=== PATIENT | male | born 1945 | race Caucasian/White ===

== ENCOUNTER → 2019-03-17 | Day surgery (SDC) | payer MEDICARE ==
[~2019-03-17] MED LIST: DICL75TA PO; ESOM40CA PO; FERR236T2 PO; FINA5TAB4 PO; HYDROmorphone 2 MG/ML VIAL IV PRN; IV RINGERS,LACTATED 1000ML 1,000 ML IV SCH; LIDOCAINE 1% PF 2 ML VIAL. ID PRN; MORPHINE SULFATE 2 MG/ML VIAL. IV PRN; ONDANSETRON PF 4 MG/2 ML VIAL. IV PRN; PROCHLORPERAZINE 10 MG/2 ML VIAL. IV PRN; PROPOFOL 40 ML IV ONE; fentaNYL PF VIAL 100 MCG/2 ML VIAL IV PRN
[2019-03-17 17:35] VITALS: BP 112/73
--- NOTE | 2019-03-17 23:35 | CONS ---
DATE OF CONSULTATION: 03/17/2019 REASON FOR CONSULTATION: Iron deficiency anemia. REFERRING PHYSICIAN: Lebron Mcgregor MD HISTORY OF PRESENT ILLNESS: This is a 73-year-old male, whose past medical history is significant for osteoarthrosis, as well as BPH, status post prostate surgery, gastroesophageal reflux disease, who is seen with iron deficiency anemia, hemoglobin is in the 11 range. Denies any melena, hematochezia, dysphagia, odynophagia, diarrhea or constipation. Weight has dropped approximately 10 pounds, has since stabilized. No family history of colon polyps, colon cancer, gastric cancer is encountered. He is otherwise without additional complaints. PAST MEDICAL HISTORY: GERD, iron deficiency anemia and osteoarthrosis. ALLERGIES: PENICILLIN. MEDICATIONS: Include diclofenac, Nexium, ferrous gluconate and finasteride. PAST SURGICAL HISTORY: Status post prostate surgery. SOCIAL HISTORY: Employed as a director search marketing strategies, does not drink or smoke at this time. FAMILY HISTORY: Noncontributory. REVIEW OF SYSTEMS: Per records. PHYSICAL EXAMINATION: GENERAL: Reveals a well-nourished, well-developed male who is alert, cooperative, in no acute distress. VITAL SIGNS: Temperature is 97.6, pulse 91 and respirations 20. HEENT: Reveals normocephalic, atraumatic head. Pupils and extraocular muscles are not tested. Sclerae anicteric. NECK: Supple. LUNGS: Clear. CARDIOVASCULAR: Reveals an S1, S2 without S3, S4 or appreciable murmur. ABDOMEN: Reveals a scaphoid abdomen without appreciable hepatosplenomegaly. No palpable aneurysm. EXTREMITIES: Reveals no cyanosis, clubbing or edema. IMPRESSION AND PLAN: Iron deficiency anemia, etiology is to be determined. Differential includes gastric or colon cancer, Fair's, AVMs, diabetes, celiac disease, colonic polyps. Therefore, I recommend upper endoscopy and colonoscopy. If this is unrevealing, then further blood counts will be pursued. A small bowel series and/or capsule may be needed if the anemia remains persistent. MALDONADO BROOKS MD DR: GABY/mitchel JOB#: [id number] / [id number] [facility] LEBRON MCGREGOR MD
--- NOTE | 2019-03-20 12:06 | PATHOLOGY ---
[facility] Accession Number: [id number] . 01 Material submitted: . PART A: stomach - GASTRIC ANTRUM BX PART B: esophagus - DISTAL ESOPHAGUS BX. Modifiers: distal . 01 Clinical history: . Pre-OP DX: Anemia Post-OP DX: Fair's, stomach ulcer . 02 Diagnosis: A. Gastric biopsies, antrum: - Chronic gastritis, moderate, with ulceration and acute inflammation. . B. 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 . (JPM:cali; 03/20/2019) [facility] 03/20/2019 0923 Local . 02 Comment: Sections of the gastric biopsy reveal segments of gastric antral mucosa showing moderate chronic inflammation with areas of ulceration and acute inflammation. A properly controlled immunoperoxidase stain for Helicobacter is negative for Helicobacter organisms. There is no evidence of malignancy. . Sections of the distal esophageal biopsy reveal segments of hyperplastic squamous esophageal mucosa with contiguous columnar-lined mucosa showing mild chronic inflammation and intestinal metaplasia with goblet cells consistent with Fair's change. There is no dysplasia or evidence of malignancy. . (JPM:chief orthoptist; 03/20/2019) . 02 Electronically signed: . Adonay Mckeon MD, Pathologist NPI- [id number] . 01 Gross description: . A. Received in formalin labeled "Randy Ivey, gastric antrum BX," are 5 segments of veliz soft tissue measuring 0.9 x 0.7 x 0.2 cm in aggregate dimensions and ranging from 0.3 to 0.5 cm in maximum dimension. The specimen is submitted entirely in cassette A1. . B. Received in formalin labeled "Bam Ivey, distal esophagus BX," are 2 segments of veliz soft tissue measuring 1.1 x 0.3 x 0.2 cm in aggregate dimensions and ranging from 0.5 to 0.6 cm in maximum dimension. The specimen is submitted entirely in cassette B1. (TSD; 03/18/2019) TOB/TOB 03/18/2019 1844 Local . 02 Pathologist provided ICD-10: K29.50, K25.9, K29.00, K22.70 . 02 CPT . 081566, 524212 Specimen Comment: A courtesy copy of this report has been sent to [phone], [phone] Specimen Comment: [id number] Specimen Comment: Report sent to / DR SHAH Specimen Comment: Report sent to Performed at: 01 [facility] [address] [id number] MD Geronimo Ann MD Phone: [phone] Performed at: 02 [facility] [address] [place], [place] [id number] MD Adonay Mckeon MD Phone: [phone]
== END ==
LOC: ENDOS 16:17
PROVIDERS: ATTEND Internal Medicine Gastroenterology
DX: D50.9 Iron deficiency anemia, unspecified (principal); K57.30 Diverticulosis of large intestine without perforation or abscess without bleeding; K29.50 Unspecified chronic gastritis without bleeding; K22.70 Barrett's esophagus without dysplasia; K21.9 Gastro-esophageal reflux disease without esophagitis; K25.9 Gastric ulcer, unspecified as acute or chronic, without hemorrhage or perforation; K64.0 First degree hemorrhoids; N40.0 Benign prostatic hyperplasia without lower urinary tract symptoms; Z88.0 Allergy status to penicillin; Z98.890 Other specified postprocedural states
CPT/HCPCS: 43239; 45378; 88305; 88342; J2704

== ENCOUNTER → 2019-04-06 | Outpatient (CLI) | payer MEDICARE ==
[2019-03-17 17:35] VITALS: BP 112/73
[~2019-04-06] MED LIST changes: -HYDROmorphone 2 MG/ML VIAL IV PRN; -IV RINGERS,LACTATED 1000ML 1,000 ML IV SCH; -LIDOCAINE 1% PF 2 ML VIAL. ID PRN; -MORPHINE SULFATE 2 MG/ML VIAL. IV PRN; -ONDANSETRON PF 4 MG/2 ML VIAL. IV PRN; -PROCHLORPERAZINE 10 MG/2 ML VIAL. IV PRN; -PROPOFOL 40 ML IV ONE; +TRAZ-86 PO; -fentaNYL PF VIAL 100 MCG/2 ML VIAL IV PRN
[2019-04-06 09:38] LABS: BASO % 1 % (0-3); EOS # 0.3 x10^3/uL (0.0-0.7); EOS % 5 % (0-3); HEMATOCRIT 39.5 % (39.0-53.0); HEMOGLOBIN 12.8 g/dL (13.0-17.5); LYMPH # 1.6 x10^3/uL (1.0-4.8); LYMPH % 30 % (24-48); MEAN CORPUSCULAR HEMOGLOBIN 27 pg (25-35); MEAN CORPUSCULAR HGB CONC 32 g/dL (31-37); MEAN CORPUSCULAR VOLUME 85 fL (79-100); MONO # 0.4 x10^3/uL (0.0-1.1); MONO % 8 % (0-9); NEUT # 3.1 x10^3/uL (1.8-7.7); NEUT % 57 % (31-73); PLATELET COUNT 205 x10^3/uL (140-400); RED BLOOD COUNT 4.68 x10^6/uL (4.30-5.70); RED CELL DISTRIBUTION WIDTH 20.6 % (11.5-14.5); WHITE BLOOD COUNT 5.5 x10^3/uL (4.0-11.0)
[2019-04-06 09:45] LABS: ALBUMIN 3.4 g/dL (3.4-5.0); CALCIUM 8.5 mg/dL (8.5-10.1); CREATININE 0.8 mg/dL (0.7-1.3); POTASSIUM 3.7 mmol/L (3.5-5.1)
[2019-04-06 09:52] LABS: PROTHROMBIN TIME PATIENT 12.9 SEC (11.7-14.0)
[2019-04-06 10:39] LABS: ANISOCYTOSIS SLIGHT; PLT ESTIMATE ADEQUATE (ADEQUATE)
--- NOTE | 2019-04-06 13:40 | EKG ---
[facility] [address] [place] [address] Test Date: 2019-04-06 Test Time: 13:12:44 Pat Name: MAX JULIEN Department: Room: Gender: M Financial Analyst Accountant: : 1945 Requested By: ESME BOSWELL Order Number: [id number] Reading MD: Imtiaz Cisse Measurements Intervals [place] Rate: 65 P: 62 PA: 154 QRS: 69 QRSD: 102 T: 26 QT: 428 QTc: 451 Interpretive Statements SINUS RHYTHM NORMAL ECG RI6.02 No previous ECG available for comparison Electronically Signed On 04-09-2019 11:29:13 SLUDGE CONTROL OPERATOR by Imtiaz Cisse
--- NOTE | 2019-04-06 14:44 | RAD ---
EXAM: Chest, 2 views. HISTORY: Sleep apnea. COMPARISON: None. FINDINGS: 2 views of the chest are obtained. There is no infiltrate, pleural effusion or pneumothorax. The heart is normal in size. There is hyperinflation due to inspiratory effort or emphysema. IMPRESSION: No acute pulmonary finding. Electronically signed by: Mary Chen MD (04/06/2019 2:41 PM) [place] [id number]
[2019-04-07 00:07] LABS: HEMOGLOBIN A1C 5.1 % (4.8-5.6)
== END | disposition home or self-care (01) ==
LOC: SURGPAT 13:14
PROVIDERS: ATTEND Orthopaedic Surgery
DX: Z01.818 Encounter for other preprocedural examination (principal); M17.11 Unilateral primary osteoarthritis, right knee; G47.30 Sleep apnea, unspecified; Z88.0 Allergy status to penicillin; Z86.2 Personal history of diseases of the blood and blood-forming organs and certain disorders involving the immune mechanism; E55.9 Vitamin D deficiency, unspecified
CPT/HCPCS: 36415; 71046; 80048; 82040; 82306; 83036; 85025; 85610; 85651; 85730; 87641; 93005

== ENCOUNTER 2019-04-28 08:10 | Inpatient (IN) | payer MEDICARE ==
[2019-04-28] VITALS (7 sets, daily range): BP systolic 116–136; BP diastolic 62–92
[~2019-04-28] VITALS: Ht 177.8 cm; Wt 75.3 kg
[~2019-04-28 08:10] MED LIST changes: +ACETAMINOPHEN 500 MG TABLET PO PRN; +CELECOXIB 100 MG CAPSULE. PO SCH; +CLINDAMYCIN 900MG PREMIX 50 ML IV PRN; +MORPHINE SULFATE 5 MG, KETOROLAC 30MG VIAL 30 MG, ROPIVacaine 0.5% PF 60 ML, EPINEPHrin... INT ART ONE; +TOBRAMYCIN POWDER 1.2 GM VIAL. ONE; +TRANEXAMIC ACID 1,000 MG in IV NS 50ML -- 1ST BAG INJ ONE; +TRANEXAMIC ACID 1,000 MG in IV NS 50ML -- 2ND BAG INJ ONE; +TRAZ-123 PO; -TRAZ-86 PO; +VANCOMYCIN 1 GM VIAL. ONE
[2019-04-28] MEDS ORDERED: fentaNYL PF VIAL 100 MCG/2 ML VIAL ONE ×2 (09:40→10:50)
[2019-04-28] MEDS ORDERED: ROCURONIUM 50 MG/5 ML VIAL. ONE (09:40)
[2019-04-28] MEDS ORDERED: DEXAMETHASONE SOD PHOS 20 MG/5 ML VIAL. ONE (09:41)
[2019-04-28] MEDS ORDERED: PROPOFOL 20 ML IV ONE ×2 (09:41→11:19)
[2019-04-28] MEDS ORDERED: LIDOCAINE 2% PF 5 ML VIAL. ONE (09:41)
[2019-04-28] MEDS ORDERED: ONDANSETRON PF 4 MG/2 ML VIAL. ONE (09:41)
[2019-04-28] MEDS: IV RINGERS,LACTATED 1000ML 1,000 ML IV SCH ×2 (09:55→22:35)
--- NOTE | 2019-04-28 10:15 | PDOC1 ---
History and Physical Date of Admission Date of Admission DATE: 04/28/19 TIME: 10:07 Identification/Chief Complaint Chief Complaint Right knee osteoarthritis pain Source Source: Chart review, Patient History of Present Illness History of Present Illness Mr. Ivey is a 73-year-old man with right knee osteoarthritis pain, and here for elective right total knee arthroplasty. He is friends with Veronica Rosa and a retired sr. payroll processor for [employer]. Currently, he reports knee pain that keeps him up at night when walking or with uneven surfaces or stairs. He was required to walk 5- 6 miles/day for work and he retired as he was unable to do this. Reports history of intermittent physical therapy over the years for knee symptoms. He states that he has tried Excedrin as this is the only medication that helps. However, this exacerbates his GERD. Never smoker. Denies metal or nickel allergy. Reports staph infection in right knee joint years ago () and he was treated with antibiotics for this and it resolved. Earlier this year he had a series of viscosupplementation injections for treatment of his arthritis and felt like he got no benefit. The knees bother him continuously but are especially keeping him awake at night and making it impossible to exercise during the day. Past Medical History Past Medical History Esophageal reflux. Insomnia. Osteoarthritis. BPH. GI: GERD Musculoskeletal: Osteoarthritis Renal/: Benign prostatic enlarg. Past Surgical History Past Surgical History prostate surgery carpal tunnel release-Lt 2016 hand surgery-Rt 2017 inguinal hernia repair-Lt 11/05/17 Past Surgical History: Hernia Repair Family History Family History Mother: Father: Unknown. Social History Smoke: No ALCOHOL: occassional Current Medications Current Medications Current Medications Morphine Sulfate 5 mg/Ketorolac Tromethamine 30 mg/Ropivacaine 60 ml/Epinephrine HCl 0.5 mg/Sodium Chloride 100 ml @ 100 mls/hr 1X ONCE INT ART ; Start 04/28/19 at 06:00; Stop 04/28/19 at 06:59; Status DC Acetaminophen (Tylenol) 1,000 mg 1X PREOP PRN PO PRIOR TO PROCEDURE Last adm inistered on 04/28/19at 09:12; Start 04/28/19 at 06:00; Stop 04/28/19 at 18:00 Clindamycin Phosphate 50 ml @ 100 mls/hr 1X PREOP PRN IV PRIOR TO PROCEDURE; Start 04/28/19 at 06:00; Stop 04/28/19 at 18:00 Tranexamic Acid 1000 mg/Sodium Chloride 60 ml @ 60 mls/hr 1X PERIOP ONCE INJ ; Start 04/28/19 at 06:00; Stop 04/28/19 at 06:59; Status DC Tranexamic Acid 1000 mg/Sodium Chloride 60 ml @ 60 mls/hr 1X PERIOP ONCE INJ ; Start 04/28/19 at 08:00; Stop 04/28/19 at 08:59; Status DC Celecoxib (CeleBREX) 200 mg PREOP 1X PO ; Start 04/28/19 at 06:00 Vancomycin HCl (Vancomycin) 1 gm STK-MED ONCE .ROUTE ; Start 04/28/19 at 07:34; Stop 04/28/19 at 07:35; Status DC Tobramycin Sulfate (Tobramycin Powder) 1.2 gm STK-MED ONCE .ROUTE ; Start 04/28/19 at 07:34; Stop 04/28/19 at 07:35; Status DC Vancomycin HCl (Vancomycin) 1 gm STK-MED ONCE .ROUTE ; Start 04/28/19 at 07:35; Stop 04/28/19 at 07:35; Status DC Ringer's Solution 1,000 ml @ 75 mls/hr [id number] IV Last administered on 04/28/19at 09:55; Start 04/28/19 at 09:15 Fentanyl Citrate (Fentanyl 2ml Vial) 100 mcg STK-MED ONCE .ROUTE ; Start 04/28/19 at 09:40; Stop 04/28/19 at 09:40; Status DC Rocuronium Pearson (Zemuron) 50 mg STK-MED ONCE .ROUTE ; Start 04/28/19 at 09:40; Stop 04/28/19 at 09:41; Status DC Propofol 20 ml @ As Directed STK-MED ONCE IV ; Start 04/28/19 at 09:41; Stop 04/28/19 at 09:41; Status DC Lidocaine HCl (Lidocaine Pf 2% Vial) 5 ml STK-MED ONCE .ROUTE ; Start 04/28/19 at 09:41; Stop 04/28/19 at 09:41; Status DC Dexamethasone Sodium Phosphate (Decadron) 20 mg STK-MED ONCE .ROUTE ; Start 04/28/19 at 09:41; Stop 04/28/19 at 09:41; Status DC Ondansetron HCl (Zofran) 4 mg STK-MED ONCE .ROUTE ; Start 04/28/19 at 09:41; Stop 04/28/19 at 09:41; Status DC Active Scripts Active Reported Trazodone Hcl 100 Mg Tablet 100 Mg PO PRN QHS PRN Finasteride 5 Mg Tablet 5 Mg PO DAILY Diclofenac Sodium 75 Mg Tablet.dr 75 Mg PO DAILY Iron (Ferrous Gluconate) 236 Mg Tablet 65 Mg PO DAILY Nexium Capsule (Esomeprazole Magnesium) 40 Mg Capsule.dr 40 Mg PO DAILYAC Allergies Allergies: Coded Allergies: Penicillins (Verified Allergy, Intermediate, 04/28/19) unknown ROS Review of System OPHTHALMOLOGY: Blurred vision none. Double vision denies. Change in vision none. ENT: Hearing loss none. Change in voice denies. Rhinorrhea none. CARDIOLOGY: Palpitations none. Shortness of breath denies. Chest pain denies. CONSTITUTIONAL: Fever denies. Chills denies. Weight gain denies. Weakness none. weight loss denies. Fatigue none. GASTROENTEROLOGY: Diarrhea denies. Vomiting none. Dysphagia none. UROLOGY: Voiding normally yes. Hematuria none. MUSCULOSKELETAL: Chronic back or neck pain denies. Swelling of the feet, hands, ankles and /or legs denies. Joint pain reports. Tingling/numbness no. DERMATOLOGY: Rash denies. Lumps none. NEUROLOGY: Dizziness/lightheadedness denies. Double vision, temporary blindness denies. Tingling/numbness none. PSYCHOLOGY: Change in mood or personality denies. Memory loss none. ENDOCRINOLOGY: Obesity denies. Fatigue none. Weight loss none. HEMATOLOGY/LYMPH: Hepatitis denies. Enlarged lymph nodes denies. Physical Exam General: Alert, Cooperative HEENT: Atraumatic Lungs: Normal air movement Heart: RRR Abdomen: Soft Extremities: Other (The RIGHT knee shows a minimal limp. There is marked varus alignment. No masses. No detectable effusion. Tenderness on the joint lines. Range of motion is 10-115 degrees. There is crepitus with range of motion, and pain at the extremes of motion. The knee is stable to varus and valgus stress without subluxation or laxity. Muscle strength is slightly weak for the quadriceps 4+/5 which may be due to pain or avoidance, and does not seem neuroge dai, and the muscle tone and bulk is slightly decreased. The hamstring strength is 5/5. The skin is normal with no scars, rashes, lesions or ulcers. Light touch sensation is intact. No edema and no varicosities. Dorsalis pedis pulse is intact and capillary refill is normal.) Skin: No breakdown, No significant lesion Neuro: Normal speech, Sensation intact Psych/Mental Status: Mental status NL, Mood NL Vitals Vitals Vital Signs Date Time Temp Pulse Resp B/P (MAP) Pulse Ox O2 Delivery O2 Flow Rate FiO2 04/28/19 08:56 97.3 71 18 152/82 97 Room Air 97.3 Labs Labs ESR = 1 Hemoglobin 12.8 Glucose 110 Hemoglobin A1c 5.1 INR 1.0 MRSA negative Creatinine 0.8 Images Images Report reviewed, images independently reviewed the x-rays 07/22/18. The right knee has varus malalignment, chme-wk-ecie contact, definite bone deformity of the medial tibia and significant sclerosis. There is tibiofemoral subluxation of the bilateral knees. The left knee also has gbdy-tj-buzw contact but not as severe of bone deformity. The right knee is definitely Kellgren Harlan grade 4 osteoarthritis. The left knee is probably Kellgren Benjie grade 4, possibly grade 3 osteoarthritis. PATIENT: MAX IVEY ACCOUNT: [id number] : 1945 LOCATION: [facility] AGE: 73 SEX: M EXAM STATUS: REG CLI ORD. PHYSICIAN: JULIO CÉSAR MARCUM II, MD REASON: PROCEDURE: KNEE BILAT 3V EXAM: Bilateral knees, 3 views. HISTORY: Pain. COMPARISON: None. FINDINGS: 3 views of both knees are obtained. There is severe right greater than left medial compartment joint space narrowing with subchondral sclerosis, subchondral cyst formation and marginal osteophytosis. There is right greater than left medial compartment bony remodeling and genu varus. There is mild bilateral lateral and moderate bilateral patellofemoral compartment spurring. There are small bilateral joint effusions. There are vascular calcifications. IMPRESSION: 1. Severe right greater than left medial compartment predominant osteoarthritis of both knees with associated medial compartment bony remodeling and genu varus. 2. Small bilateral knee effusions. Electronically signed by: Mary Keen MD (07/22/2018 12:22 PM) [facility] DICTATED and SIGNED BY: MARY KEEN MD DATE: 07/22/18 122 VTE Prophylaxis Ordered VTE Prophylaxis Devices: Yes VTE Pharmacological Prophylaxi: Yes Assessment/Plan Assessment/Plan The patient has primary oocj-du-wfui osteoarthritis of his bilateral knees. As he has tried nonoperative treatment without success, I recommended total knee replacement of both of his knees, starting with his right knee. We discussed the potential risks of infection, neurovascular injury, fracture, bleeding, blood clots, malalignment, need for revision surgery, or other potential surgical or anesthetic complications. Although the history of prior right knee infection is concerning, his erythrocyte sedimentation rate is 1, and there is no evidence of ongoing infection. I discussed the potential risk of infection with him related to prior infection. I recommended the robotic Navio instrumentation for which we discussed my reasoning. We also discussed postoperative treatment and expectations. All of his questions were answered and he desires to proceed with total knee replacement. He is here today for elective right total knee arthroplasty. ESME BOSWELL MD Apr 28, 2019 10:15
[2019-04-28] MEDS ORDERED: NEOSTIGMINE METHYLSULFATE 5 MG/5 ML SYRINGE. ONE (10:49)
[2019-04-28] MEDS ORDERED: GLYCOPYRROLATE 1 MG/5 ML VIAL. ONE (10:49)
[2019-04-28] MEDS ORDERED: ESMOLOL 100 MG/10 ML VIAL. IVP ONE (11:24)
[2019-04-28] MEDS ORDERED: VANCOMYCIN 1 GM VIAL. ONE (11:35)
[2019-04-28] MEDS ORDERED: SEVOFLURANE > 120 MINUTES. IH ONE (11:54)
[2019-04-28] MEDS ORDERED: IV NORMAL SALINE 1000ML BAG 1,000 ML IV SCH (13:20)
--- NOTE | 2019-04-28 13:20 | PDOC4 ---
Operative Note Operative Note Date of Procedure: April 28, 2019 Pre-Op Diagnosis: Unilateral primary osteoarthritis, right knee. M17.11 Post-Op Diagnosis: same Procedure: right total knee arthroplasty with patella resurfacing, robotic assisted, CPT 23007 Surgeon: Esme Velez MD [place] Supervisor: ANNETTE Rivera Anesthesia: General EBL: 100 mL Specimens Obtained: right knee bone and soft tissue Complications: none Drains: Hemovac plus pain catheter Tourniquet time: 79 Minutes Tourniquet Pressure: 300 mm Hg Indications for Procedure: Knee arthritis pain, affecting quality of life, unrelieved by nonoperative management Findings: Severe osteoarthritis with bone on bone contact in all three compartments Implants: Iverson & Nephew Journey II Total Knee System, Size 4 right bicruciate stabilized Journey II BCS cobalt chrome femoral component, size 5 right Journey nonporous tibial baseplate, size 5-6 13 mm right Journey II BCS constrained articular insert, 41 mm oval Maddi II resurfacing patellar component Procedure in Detail: The patient was identified in the preoperative holding area, and the correct right lower extremity was marked by me. The patient was taken to the operating room where the patient was anesthetized by the Department of Anesthesia. Preoperative antibiotics were given intravenously. Tranexamic acid 1 g was given intravenously for intraoperative hemostasis. A "time-out" procedure was performed. The patient was positioned supine on the operative table with a tourniquet on the upper right thigh. A lateral thigh brace and heel bump were attached to the operating table for later intraoperative positioning. The right lower limb was thoroughly scrubbed, then sterile Chloraprep solution was applied, and the limb was draped in sterile fashion. An impervious stockinet and an adhesive drape were used such that the skin was entirely covered. The operating team wore personal exhaust-ventilated hoods. The limb was exsanguinated with an Esmarch bandage, and the tourniquet was inflated. A midline skin incision was made with a scalpel using the patella and tibial tubercle as landmarks. Electrocautery was used for hemostasis. My occupational therapist's assistant used rake retractors. A medial parapatellar arthrotomy incision was used with extension into the distal quadriceps tendon. The patella was retracted laterally and Hohmann re tractors were now used by my occupational therapist's assistant. Excess synovium, the menisci, and the cruciate ligaments were resected sharply. A periarticular multimodal ropivacaine anesthetic injection was used in the suprapatellar pouch and distal quadriceps muscle. The patella was everted and exposed. The patella thickness was measured with a caliper, and then cut freehand with a saw, using caliper measurements to assess the resection. The lateral retinaculum was partially released from the lateral patella using electrocautery. Rongeurs were used to make sure there were no remaining exposed patellar osteophytes medially or laterally. The patella was sized, and then drilled for an oval three-peg patella component. The tibial tracker array for the Navio system was applied to the tibial crest four finger breadths below the tibial tubercle, using percutaneous incisions and bicortical pins. The femoral tracker array was applied through the original incision, using bicortical pins. Checkpoint verification pins were applied to the femur and tibia. Using the point probe, the medial and lateral malleoli were localized and the locations were stored. The center of the tibia was noted at the anterior cruciate ligament insertion and stored. The center of the femur was marked at the intersection of Whitesidess line with the transepicondylar axis. The hip center calculation was performed with range of motion of the hip. The femur neutral position was identified, and simulated weightbearing was performed with axial compression on the foot. Range of motion without stress was performed and the data collected. Range of motion with valgus stress, and range of motion with varus stress data collection was also performed. Rotational references include the Whitesidess line, and the trans-epicondylar axis. The femoral articular surface was now mapped in 3 dimensions using the point probe and digital data collected. The tibial condyle articular surfaces and cortical edges were mapped in 3 dimensions using the point probe including the medial and lateral tibial plateau. Implant planning was now performed on-screen with manipulation of the implant sizes, cut thicknesses and gaps, component rotation, component flexion/extension and component varus/valgus until satisfactory ligament balance, alignment and stability of the knee was expected throughout the range of motion. My occupational therapist's assistant held Hohmann retractors and an [facility] retractor to protect the medial and lateral collateral ligaments, the patellar tendon, the skin and the other soft tissues. The point probe was used to confirm the location of the checkpoint verification pins. The distal femoral surface was now prepared using the Anspach diana with footpedal, and the Navio handpiece for bone removal to the previously planned distal femoral resection. The crosshairs at the pin locations were marked by using a mallet and the point probe for definitive location. A 5-in-1 Journey II cutting guide was then applied and the position was checked with the virtual mónica wing from the Navio to ensure proper placement as the pins were applied. The posterior, anterior, and all chamfer cuts were made with the oscillating saw. Excess bone was removed with an osteotome and rongeurs. The tibial cutting guide was applied, positioned using the virtual mónica wing, and secured to the upper tibia using three pins at the previously planned location. The virtual mónica wing was used to confirm the resection depth, slope and coronal alignment. The upper tibia was cut made with an oscillating saw. My occupational therapist's assistant held Hohmann retractors and a posterior cruciate ligament retractor to protect the medial and lateral collateral ligaments, the patellar tendon, the skin, the peroneal nerve and the other soft tissues. The upper tibia was sized with a trial baseplate. The posterior compartment was cleared of osteophytes and loose bodies. The periarticular anesthetic injection was used in the posterior compartment. The box cut for a posterior stabilized component was made. A preliminary reduction was performed with a trial femur, trial tibial baseplate and trial polyethylene. The Navio system was used to confirm range of motion, and postoperative stressed gap assessment. A medial release was required, using a 10 blade scalpel, and a Shay elevator to elevate the medial structures from the upper medial tibia. The stability was assessed using different thicknesses of tibial articular surface to find satisfactory stability and good range of motion. The rotation of the tibial component was marked on the upper tibia. Final trial reduction was now performed verifying patella tracking and tibiofemoral stability and alignment. The bone pins and tracker arrays were removed, and the checkpoint verification pins were removed. The tibia preparation was completed with a drill, saw, and fin punch at the previously noted rotation. The final implants were verified and opened. Outer gloves were changed by the operating team. Betadine lavage was used. The bone cuts were irrigated with saline using the Kerecis InterPulse device and then dried with suction and laparotomy sponges. Two packages of Iverson + Nephew Rally HV bone cement were mixed in powdered form with Vancomycin 1gm and Tobramycin 1.2 gm, and then vacuum-mixed with the monomer, and placed into a cement gun. The cut surfaces of the bone were thoroughly dried with suction and with laparotomy sponges for cement interdigitation. The final components were cemented into place. The knee was kept at full extension while the cement hardened, and excess cement was removed. A Betadine lavage was used throughout the surgical exposure, and allowed to sit in contact with the exposed joint surfaces for three minutes while the cement hardened. Tranexamic acid 1 g was redosed intravenously for additional intraoperative hemostasis. The tourniquet was released, and electrocautery was used for hemostasis. A final periarticular anesthetic injection was used for pain relief. The bone pin sites on the tibial crest were closed with #3-0 Nylon sutures. A final check of [id number] and stability was made, and the polyethylene implant final size was chosen. The polyethylene implant was secured to the tibial baseplate, and the knee was reduced a final time and range of motion and stability was confirmed. Thorough irrigation was used. A pain catheter, and a 15 Fr Hemovac were inserted. Topical Vancomycin 1 gm was used during the closure. The arthrotomy was closed with interrupted [id number] #1 PDS suture. The arthrotomy incision was then run with #1 STRATAFIX Symmetric PDS Plus Knotless suture. The subcutaneous tissues were approximated initially with 2-0 PDS inverted interrupted sutures by me and my occupational therapist's assistant. Next the subcuticular layer was approximated in a running fashion with #3-0 STRATAFIX suture by my occupational therapist's assistant. The skin incision was then covered and reinforced by my occupational therapist's assistant with Acticoat, followed by a FRANKLIN single use negative pressure wound therapy dressing Soft roll and an Nick wrap were applied. Needle and sponge counts were correct. There were no apparent complications. The patient returned to the recovery room in stable condition. ESME VELEZ MD Apr 28, 2019 13:20
[2019-04-28] MEDS ORDERED: METOCLOPRAMIDE HCL 10 MG/2 ML VIAL. IV PRN (13:30)
[2019-04-28] MEDS ORDERED: fentaNYL PF VIAL 100 MCG/2 ML VIAL IV PRN ×2 (13:30→14:00)
[2019-04-28] MEDS ORDERED: 0.9 % SODIUM CHLORIDE 10 ML DISP.SYRIN. IV PRN (13:30)
[2019-04-28] MEDS ORDERED: ZOLPIDEM 5 MG TABLET. PO PRN (13:30)
[2019-04-28] MEDS ORDERED: DEXTROSE 50% 25 GM / 50ML DISP.SYRIN. IV PRN (13:30)
[2019-04-28] MEDS ORDERED: CALCIUM CARBONATE 500 MG TAB.CHEW PO PRN (13:30)
[2019-04-28] MEDS ORDERED: MORPHINE SULFATE 4 MG/ML VIAL. IV PRN (13:30)
[2019-04-28] MEDS ORDERED: MORPHINE SULFATE 2 MG/ML VIAL. IV PRN (13:30)
[2019-04-28] MEDS ORDERED: IV DEXTROSE 5% 250 ML BAG. IV PRN (13:30)
[2019-04-28] MEDS ORDERED: PROCHLORPERAZINE 5 MG TABLET. PO PRN (13:30)
[2019-04-28] MEDS ORDERED: diphenhydrAMINE 50 MG/ML VIAL IV PRN (13:30)
[2019-04-28] MEDS ORDERED: PROCHLORPERAZINE 10 MG/2 ML VIAL. ONE (13:50)
[2019-04-28] MEDS ORDERED: IV RINGERS,LACTATED 1000ML 1,000 ML IV SCH (13:56)
[2019-04-28] MEDS ORDERED: ONDANSETRON PF 4 MG/2 ML VIAL. IV PRN (14:00)
[2019-04-28] MEDS ORDERED: HYDROmorphone 2 MG/ML VIAL IV PRN (14:00)
[2019-04-28] MEDS: fentaNYL PF VIAL 100 MCG/2 ML VIAL IV PRN ×4 (14:00→16:14)
[2019-04-28] MEDS: MORPHINE SULFATE 2 MG/ML VIAL. IV PRN ×3 (14:01→14:57)
--- NOTE | 2019-04-28 14:36 | RAD ---
KNEE RIGHT 2V History: Postop Technique: 2 views right knee. Comparison: July 22, 2018. Findings: Interval right total knee arthroplasty. Expected postoperative finding subcutaneous and intra-articular gas. Surgical drain noted. Normal limit. No fracture. Screw tracks within the distal femur and proximal tibia. Vascular calcifications. Impression: 1. Interval right total knee arthroplasty. No immediate hardware complications. Electronically signed by: Blanco Mayfield DO (04/28/2019 2:32 PM) [facility]
[2019-04-28] MEDS ORDERED: PROCHLORPERAZINE 10 MG/2 ML VIAL. IV ONE (15:00)
--- NOTE | 2019-04-28 15:53 | NUR ---
received from recovery. he is alert and oriented x4. sons at bedside. he is rating his pain "2" denies nausea-given coffee per request. he is taking care of his at home ; she has breast cancer. he has good sensation, pulses and motion bilateral lower extremities.
[2019-04-28] MEDS: CLINDAMYCIN 900MG PREMIX 50 ML IV SCH ×2 (16:14→22:31)
[2019-04-28] MEDS: ONDANSETRON ODT 4 MG TAB.RAPDIS. PO SCH (18:00)
[2019-04-28] MEDS: ONDANSETRON PF 4 MG/2 ML VIAL. IV SCH (18:00)
[2019-04-28] MEDS: KETOROLAC 30MG VIAL 30 MG, BUPIVACAINE MPF 0.25% 20 ML, EPINEPHrine 0.5 MG in TOTAL VOL... INT ART SCH (18:09)
[2019-04-28] MEDS: ASPIRIN ENTERIC COATED 325 MG TABLET.DR. PO SCH (20:02)
[2019-04-28] MEDS: FINASTERIDE 5 MG TABLET. PO SCH (21:36)
[2019-04-28] MEDS: traZODone 100 MG TABLET. PO PRN (22:47)
[2019-04-28] MEDS: oxyCODONE/APAP 5/325 1 TAB TABLET PO PRN (22:48)
--- NOTE | 2019-04-28 23:08 | NUR ---
Patient attempted to urinate x 3 without success. Patient c/o "Pain to bladder." Abdomen firm and tender. Patient states he has had to straight cath self in past. Straight Catheter placed using sterile technique. Patient tolerated procedure without complaints. 1200 cc clear yellow urine removed. Patient verbalized relief of "Bladder pain."
[2019-04-29] MEDS: ONDANSETRON PF 4 MG/2 ML VIAL. IV SCH ×3 (00:20→11:04)
[2019-04-29] MEDS: ONDANSETRON ODT 4 MG TAB.RAPDIS. PO SCH ×3 (00:20→11:04)
[2019-04-29] MEDS: CLINDAMYCIN 900MG PREMIX 50 ML IV SCH (03:42)
[2019-04-29 03:53] VITALS: BP 135/78
[2019-04-29 05:06] LABS: HEMOGLOBIN 11.3 g/dL (13.0-17.5)
[2019-04-29 05:17] VITALS: BP 114/68
[2019-04-29] MEDS ORDERED: MAGNESIUM HYDROXIDE 2,400 MG/30 ML ORAL.SUSP. PO PRN (06:00)
[2019-04-29] MEDS: KETOROLAC 30MG VIAL 30 MG, BUPIVACAINE MPF 0.25% 20 ML, EPINEPHrine 0.5 MG in TOTAL VOL... INT ART SCH (06:07)
[2019-04-29] MEDS: PANTOPRAZOLE 40 MG TABLET.DR. PO SCH (06:07)
--- NOTE | 2019-04-29 06:39 | NUR ---
Patient unable to void, c/o "Full bladder." Bladder scan performed and >999 revealed. Straight Catheter placed using sterile technique. Patient tolerated procedure without any c/o. 1250cc clear yellow urine obtained.
--- NOTE | 2019-04-29 07:40 | PDOC ---
ORTHO PROGRESS NOTES Subjective Patient states feeling well with minimal complaint of pain, but concerned about inability to urinate. Post-op Day: 1 Procedure R TKA Vitals Vital Signs Date Time Temp Pulse Resp B/P (MAP) Pulse Ox O2 Delivery O2 Flow Rate FiO2 04/29/19 05:17 97.7 74 18 114/68 (83) 95 Room Air 97.7 04/28/19 16:15 2.0 Labs Laboratory Tests Test 04/29/19 04:40 Hemoglobin 11.3 g/dL (13.0-17.5) Hematocrit 35.0 % (39.0-53.0) Mean Corpuscular Hemoglobin Concent 32 g/dL (31-37) Laboratory Tests Test 04/29/19 04:40 Hemoglobin 11.3 g/dL (13.0-17.5) Hematocrit 35.0 % (39.0-53.0) Mean Corpuscular Hemoglobin Concent 32 g/dL (31-37) Notes Awake and alert Assessment and Plan POD # 1 S/P R TKA motor and sensation dressing dry and intact Patient has been straight cathed x 2 with 1200cc and 1250. Patients urologist is Carmen Stubbs and he is taking meds for BPH PT today. SANDEEP PARIS APRN Apr 29, 2019 07:40
[2019-04-29] MEDS: ASPIRIN ENTERIC COATED 325 MG TABLET.DR. PO SCH ×2 (08:21→20:57)
[2019-04-29] MEDS: MULTIVITAMIN with MINERAL TABLET. PO SCH (08:21)
[2019-04-29] MEDS: oxyCODONE/APAP 5/325 1 TAB TABLET PO PRN ×4 (08:22→20:58)
[2019-04-29] MEDS: FINASTERIDE 5 MG TABLET. PO SCH (08:22)
[2019-04-29] MEDS: SENNOSIDES/DOCUSATE 8.6/50MG TABLET. PO SCH (08:22)
[2019-04-29] MEDS ORDERED: FINASTERIDE 5 MG TABLET. PO SCH (09:00)
[2019-04-29] MEDS ORDERED: ONDANSETRON PF 4 MG/2 ML VIAL. IV PRN (12:00)
[2019-04-29] MEDS ORDERED: ONDANSETRON ODT 4 MG TAB.RAPDIS. PO PRN (12:00)
[2019-04-29] MEDS ORDERED: BISACODYL 10 MG SUPP.RECT. PR PRN (16:00)
--- NOTE | 2019-04-29 17:24 | NUR ---
Patient with decreased urge to void thru out the morning, but has started voiding more and more each time he goes. Dr Velez was notified about over night retention and stated if he continues to retain to place a Agarwal. Most recently the patient just voided 250ml with a bladder scan of 126ml. Dr Velez notified. Will not place Agarwal at this time but will continue to monitor due to history and recent urinary retention.
[2019-04-29 18:11] VITALS: BP 110/61
[2019-04-29] MEDS: traZODone 100 MG TABLET. PO PRN (20:57)
[2019-04-30] MEDS: PANTOPRAZOLE 40 MG TABLET.DR. PO SCH (05:37)
[2019-04-30] MEDS: oxyCODONE/APAP 5/325 1 TAB TABLET PO PRN ×6 (05:37→19:47)
[2019-04-30 06:02] VITALS: BP 94/56
--- NOTE | 2019-04-30 06:34 | NUR ---
Percocet given this morning for "soreness and stiffness". Ice pack placed. Urinating w/o difficulty. at 2100 he voided 400cc w/ a PVR of 285.
[2019-04-30 06:46] LABS: HEMATOCRIT 30.1 % (39.0-53.0); HEMOGLOBIN 9.9 g/dL (13.0-17.5)
--- NOTE | 2019-04-30 08:55 | PDOC ---
PROGRESS NOTES Subjective Subjective Pain controlled. No major complaints. Had urinary retention yesterday and required cath X2. Objective Vital Signs Vital Signs Date Time Temp Pulse Resp B/P (MAP) Pulse Ox O2 Delivery O2 Flow Rate FiO2 04/30/19 06:40 20 Room Air 04/30/19 06:02 98.6 79 94/56 (69) 95 98.6 04/28/19 16:15 2.0 Physical Exam FRANKLIN dressing intact. Some blood on dressing. Mild ecchymosis medially, consistent with his medial release intra-op. Pain catheter and drain have been removed. Calf soft and nontender. Good AROM of ankle. Minimal erythema/warmth. Not yet safely ambulating with walker. Requires PT or nursing assistance, and gait belt for safe transition from chair or bed to walker. Labs Laboratory Tests Test 04/29/19 04:40 04/30/19 06:30 Hemoglobin 11.3 g/dL (13.0-17.5) 9.9 g/dL (13.0-17.5) Hematocrit 35.0 % (39.0-53.0) 30.1 % (39.0-53.0) Mean Corpuscular Hemoglobin Concent 32 g/dL (31-37) 33 g/dL (31-37) Laboratory Tests Test 04/30/19 06:30 Hemoglobin 9.9 g/dL (13.0-17.5) Hematocrit 30.1 % (39.0-53.0) Mean Corpuscular Hemoglobin Concent 33 g/dL (31-37) Imaging Postoperative x-rays and report reviewed by me and show satisfactory alignment and no apparent complications. Assessment Assessment POD #2 TKA Plan Plan of Care Continue POC. Discharge planning for tomorrow. Aspirin 325 mg po BID and mobilization for DVT prophylaxis. Continue to monitor for signs of urinary retention. Consider indwelling ramirez and urology consult if retention occurs today. ESME BOSWELL MD Apr 30, 2019 08:55
[2019-04-30] MEDS: ASPIRIN ENTERIC COATED 325 MG TABLET.DR. PO SCH ×2 (09:28→19:46)
[2019-04-30] MEDS: MULTIVITAMIN with MINERAL TABLET. PO SCH (09:28)
[2019-04-30] MEDS: FINASTERIDE 5 MG TABLET. PO SCH (09:28)
[2019-04-30] MEDS: SENNOSIDES/DOCUSATE 8.6/50MG TABLET. PO SCH (09:29)
--- NOTE | 2019-04-30 17:48 | NUR ---
"brue " is doing better. he is voiding without problems. did spot PVR--voided 250cc and had 47 cc residual. pain is better control.
[2019-04-30 18:27] VITALS: BP_SYST 90; BP_SYST 92; BP_DIAS 55; BP_DIAS 62
[2019-04-30] MEDS: traZODone 100 MG TABLET. PO PRN (19:46)
[2019-05-01 03:57] LABS: HEMATOCRIT 27.8 % (39.0-53.0); HEMOGLOBIN 9.2 g/dL (13.0-17.5)
[2019-05-01 06:05] VITALS: BP 92/62
[2019-05-01] MEDS: PANTOPRAZOLE 40 MG TABLET.DR. PO SCH (06:13)
[2019-05-01] MEDS: oxyCODONE/APAP 5/325 1 TAB TABLET PO PRN ×3 (06:13→14:18)
[2019-05-01] MEDS: MULTIVITAMIN with MINERAL TABLET. PO SCH (08:30)
[2019-05-01] MEDS: SENNOSIDES/DOCUSATE 8.6/50MG TABLET. PO SCH (08:31)
[2019-05-01] MEDS: FINASTERIDE 5 MG TABLET. PO SCH (08:31)
[2019-05-01] MEDS: ASPIRIN ENTERIC COATED 325 MG TABLET.DR. PO SCH (08:32)
--- NOTE | 2019-05-01 09:07 | PATHOLOGY ---
[facility] Accession Number: [id number] . 01 Material submitted: . knee - RIGHT KNEE BONE AND SOFT TISSUE. Modifiers: right . 01 Clinical history: . right knee OA . 02 Diagnosis: Segments of bone and soft tissue, right total knee arthroplasty: - Advanced degenerative arthritis. - Focal polarizable crystalline deposits within synovium and meniscus consistent with calcium pyrophosphate. . (JPM:mm; 04/30/2019) [facility] 04/30/2019 1555 Local . 02 Electronically signed: . Adonay Mckeon MD, Pathologist NPI- [id number] . 01 Gross description: . The specimen is received in formalin, labeled "Randy Ivey, right knee bone and soft tissue" and consists of multiple segments of pink-veliz bone including the tibial plateau as well as yellow veliz soft tissue measuring 13.3 x 12.5 x 1.5 cm. The meniscus is present. The articular surfaces display eburnation and roughening over 50%. Osteophytes are present. Electrical And Instrumentation Mechanic sections are submitted in A1-A2 with A2 following decalcification. (SDY; 04/29/2019) SYU/SYU 04/29/2019 1722 Local . 02 Pathologist provided ICD-10: M17.11 . 02 CPT . 680272, 119001 Specimen Comment: A courtesy copy of this report has been sent to [phone], [phone] Specimen Comment: [id number] Specimen Comment: Report sent to / DR SHAH Performed at: 01 [facility] [address], [place], [place] [id number] MD Geronimo Ann MD Phone: [phone] Performed at: 02 [facility] [address], [place] [id number] MD Adonay Mckeon MD Phone: [phone]
--- NOTE | 2019-05-01 13:30 | PDOC ---
PROGRESS NOTES Subjective Subjective No complaints. Planning on discharge today to home. Objective Vital Signs Vital Signs Date Time Temp Pulse Resp B/P (MAP) Pulse Ox O2 Delivery O2 Flow Rate FiO2 05/01/19 09:33 Room Air 05/01/19 06:13 18 05/01/19 06:05 99.1 84 92/62 (72) 99 99.1 04/30/19 17:45 2.0 Physical Exam New FRANKLIN (changed yesterday) is intact and dry. Good AROM ankle. Calf soft and nontender. Minimal warmth or erythema. Labs Laboratory Tests Test 04/30/19 06:30 05/01/19 03:45 Hemoglobin 9.9 g/dL (13.0-17.5) 9.2 g/dL (13.0-17.5) Hematocrit 30.1 % (39.0-53.0) 27.8 % (39.0-53.0) Mean Corpuscular Hemoglobin Concent 33 g/dL (31-37) 33 g/dL (31-37) Laboratory Tests Test 05/01/19 03:45 Hemoglobin 9.2 g/dL (13.0-17.5) Hematocrit 27.8 % (39.0-53.0) Mean Corpuscular Hemoglobin Concent 33 g/dL (31-37) Assessment Assessment POD #3 TKA Plan Plan of Care Discharge planning for today. Continue PT and DVT prophylaxis. F/U 10-14 days in office. ESME BOSWELL MD May 01, 2019 13:30
[2019-05-01] MEDS ORDERED: OXYC1TAB15 PO (13:35)
[2019-05-01] MEDS ORDERED: ASPI325T11 PO (13:35)
[2019-05-01] MEDS ORDERED: CELE200C PO (13:35)
--- NOTE | 2019-05-01 13:37 | PDOC3 ---
Discharge Summary Visit Information Date of Admission: Apr 28, 2019 Date of Discharge: May 01, 2019 Admitting Diagnosis: osteoarthritis right knee. Aftercare R TKA Final Diagnosis same Brief Hospital Course Allergies Allergies Coded Allergies Type Severity Reaction Last Updated Verified Penicillins Allergy Intermediate 04/28/19 Yes Vital Signs Vital Signs Date Time Temp Pulse Resp B/P (MAP) Pulse Ox O2 Delivery O2 Flow Rate FiO2 05/01/19 09:33 Room Air 05/01/19 06:13 18 05/01/19 06:05 99.1 84 92/62 (72) 99 99.1 04/30/19 17:45 2.0 Lab Results Laboratory Tests Test 04/30/19 06:30 05/01/19 03:45 Hemoglobin 9.9 g/dL (13.0-17.5) 9.2 g/dL (13.0-17.5) Hematocrit 30.1 % (39.0-53.0) 27.8 % (39.0-53.0) Mean Corpuscular Hemoglobin Concent 33 g/dL (31-37) 33 g/dL (31-37) Laboratory Tests Test 05/01/19 03:45 Hemoglobin 9.2 g/dL (13.0-17.5) Hematocrit 27.8 % (39.0-53.0) Mean Corpuscular Hemoglobin Concent 33 g/dL (31-37) Brief Hospital Course 73 year old who presented with knee osteoarthritis, for elective total knee arthroplasty. The patient underwent total knee arthroplasty under general anesthesia the day of admission. Perioperative antibiotics and DVT prophylaxis were used. Postoperatively physical therapy and case management were consulted. The patient progressed and is stable for discharge. Discharge Information Condition at Discharge: Stable Follow Up: Weeks Disposition/Orders: D/C to Home w/ HH Scheduled Aspirin (Aspirin Ec), 325 MG PO BID Celecoxib (Celebrex), 1 CAP PO DAILY Diclofenac Sodium (Diclofenac Sodium), 75 MG PO DAILY, (Reported) Esomeprazole Magnesium (Nexium Capsule), 40 MG PO DAILYAC, (Reported) Ferrous Gluconate (Iron), 65 MG PO DAILY, (Reported) Finasteride (Finasteride), 5 MG PO DAILY, (Reported) Scheduled PRN Oxycodone/Apap 5-325 (Percocet 5-325 Mg Tablet ), 1-2 TAB PO PRN Q4HRS PRN for PAIN Trazodone Hcl (Trazodone Hcl), 100 MG PO PRN QHS PRN for INSOMNIA, (Reported) Patient Instructions Patient Instructions Continue weight bearing as tolerated with walker. Keep FRANKLIN dressing intact and dry. Cut off FRANKLIN "tail" and throw away battery pack on the 7th day after surgery. Tape down FRANKLIN tail Leave FRANKLIN dressing intact otherwise. Follow up with Dr. Velez's office in 10-14 days. Call for appointment unless already scheduled. Continue enteric coated aspirin 325 mg by mouth twice a day for 30 days to prevent blood clots. ESME VELEZ MD May 01, 2019 13:37
--- NOTE | 2019-05-01 13:39 | SNU/HH DC ---
DISCHARGE WITH HOME HEALTH DISCHARGE INFORMATION: Discharge Date: May 01, 2019 Final Diagnosis: osteoarthritis right knee. Aftercare following right total knee arthroplasty Condition on Discharge: Stable CODE STATUS: Code Status: Full HOME HEALTH: Face to Face: I certify this patient is under my care and that I, or a nurse practitioner or physician's marketing assistant manager working with me, had a face to face encounter that meets the physician face to face encounter requirements with this patient on 05/01/19. Medical Complications: S/P Joint Replacement RN For Eval/Treatment: No Physical Therapy For: Evalulation/Treatment Occupational Therapy For: Evaluation/Treatment Pt Meets Homebound Status: Unsteady balance w/ amb,, Limited distance walking POST DISCHARGE ORDERS: Activity Instructions for Disc: Progressive ambulation Weight Bearing Status after Di: No restrictions, Full weight bearing, As tolerated Bathing Instructions: Shower-keep dressing dry DIET AFTER DISCHARGE: Regular Wound/Incision Care: Ice to area for comfort, Keep wound/cast CDI, Keep wound elevated, Do not change dressing FOLLOW-UP: Follow up with: Dr. Velez's office as scheduled. TREATMENT/EQUIPMENT ORDERS: Adaptive Equipment Issued: Front wheeled walker CERTIFICATION STATEMENT: Certification Statement: Certification Statement: Based on the above finding, I certify that this patient is confined to the home and needs intermittent nursing home care, physical therapy and/or speech therapy, or continues to need occupational therapy. This patient is under my care, and I have initiated the establishment of the plan of care. This patient will be followed by myself or a community physician who will periodically review the plan of care. Home Meds Active Scripts Oxycodone/Apap 5-325 (PERCOCET 5-325 MG TABLET ) 1 Each Tablet, 1-2 TAB PO PRN Q4HRS PRN for PAIN for 14 Days, #50 TAB Take 1-2 tablets by mouth every 4 hours as needed for pain Prov:ESME VELEZ MD 05/01/19 Aspirin (ASPIRIN EC) 325 Mg Tablet.dr, 325 MG PO BID for prevent blood clots for 30 Days, #60 TAB.SR Take one 325 mg enteric-coated aspirin by mouth twice a day for 30 days Prov:ESME VELEZ MD 05/01/19 Celecoxib (CELEBREX) 200 Mg Capsule, 1 CAP PO DAILY for control pain and swelling, #30 CAP 0 Refills Prov:ESME VELEZ MD 05/01/19 Reported Medications Trazodone Hcl (TRAZODONE HCL) 100 Mg Tablet, 100 MG PO PRN QHS PRN for INSOMNIA, TAB 04/09/19 Finasteride (FINASTERIDE) 5 Mg Tablet, 5 MG PO DAILY for *, TAB 03/17/19 Diclofenac Sodium (DICLOFENAC SODIUM) 75 Mg Tablet.dr, 75 MG PO DAILY for *, TAB.SR 03/17/19 Ferrous Gluconate (IRON) 236 Mg Tablet, 65 MG PO DAILY for ANEMIA, TAB 03/17/19 Esomeprazole Magnesium (NEXIUM CAPSULE) 40 Mg Capsule.dr, 40 MG PO DAILYAC for GERD, #30 CAP 0 Refills 03/17/19 ESME VELEZ MD May 01, 2019 13:39
[2019-05-01 14:19] VITALS: BP 104/66
== END 2019-05-01 14:20 | disposition home health service (06) | DRG 470 ==
LOC: OPSVCIP 08:10 → 4 SOUTHEST 15:16
PROVIDERS: ADMIT Orthopaedic Surgery; ATTEND Orthopaedic Surgery
PROC: 8E0Y0CZ Robotic Assisted Procedure of Lower Extremity, Open Approach (ICD-10-PCS; 2019-04-28)
PROC: 0SRC0J9 Replacement of Right Knee Joint with Synthetic Substitute, Cemented, Open Approach (ICD-10-PCS; principal; 2019-04-28 10:00)
DX: M17.0 Bilateral primary osteoarthritis of knee (principal); K21.9 Gastro-esophageal reflux disease without esophagitis; N40.1 Benign prostatic hyperplasia with lower urinary tract symptoms; R33.8 Other retention of urine; G47.00 Insomnia, unspecified; Z88.0 Allergy status to penicillin
CPT/HCPCS: 36415; 73560; 85014; 85018; 86850; 86900; 86901; 88304; 88311; A7015; C1713; J0171; J0780; J1100; J1885; J2001; J2270; J2405; J2704; J2710; J2795; J3010; J3260; J3370; J3490; J7030; J7120; 97116; 97150; 97530; 97535; A4461; C1769; G0378

== ENCOUNTER 2019-08-25 06:02 | Observation (INO) | payer MEDICARE ==
[2019-08-21 13:29] LABS: BASO % 1 % (0-3); EOS # 0.2 x10^3/uL (0.0-0.7); EOS % 4 % (0-3); HEMATOCRIT 42.4 % (39.0-53.0); HEMOGLOBIN 14.1 g/dL (13.0-17.5); LYMPH # 1.3 x10^3/uL (1.0-4.8); LYMPH % 26 % (24-48); MEAN CORPUSCULAR HEMOGLOBIN 30 pg (25-35); MEAN CORPUSCULAR HGB CONC 33 g/dL (31-37); MEAN CORPUSCULAR VOLUME 89 fL (79-100); MONO # 0.5 x10^3/uL (0.0-1.1); MONO % 10 % (0-9); NEUT # 3.2 x10^3/uL (1.8-7.7); NEUT % 61 % (31-73); PLATELET COUNT 186 x10^3/uL (140-400); RED BLOOD COUNT 4.75 x10^6/uL (4.30-5.70); RED CELL DISTRIBUTION WIDTH 17.8 % (11.5-14.5); WHITE BLOOD COUNT 5.2 x10^3/uL (4.0-11.0)
[2019-08-21 13:40] LABS: PROTHROMBIN TIME PATIENT 13.5 SEC (11.7-14.0)
[2019-08-21 13:44] LABS: ALBUMIN 3.7 g/dL (3.4-5.0); CALCIUM 8.3 mg/dL (8.5-10.1); CREATININE 0.8 mg/dL (0.7-1.3); GFR 94.8; POTASSIUM 4.1 mmol/L (3.5-5.1)
--- NOTE | 2019-08-24 13:01 | PDOC1 ---
History and Physical Date of Admission Date of Admission 08/25/2019 Identification/Chief Complaint Chief Complaint Right knee instability Source Source: Chart review, Patient History of Present Illness History of Present Illness This 74-year-old man had right total knee arthroplasty by me on 04/28/2019. The procedure was a robotic assisted right total knee arthroplasty using Iverson [employer] Nephew components,Iverson & Nephew Journey II Total Knee System, Size 4 right bicruciate stabilized Journey II BCS cobalt chrome femoral component, size 5 right Journey nonporous tibial baseplate, size 5-6 13 mm right Journey II BCS constrained articular insert, 41 mm oval Maddi II resurfacing patellar component. He was doing well with the knee until about 6 weeks ago when he felt a pop. Since then he has had symptoms of instability. His examination shows rupture of the patellar tendon with disruption of the extensor mechanism. This was not present at the initial postoperative visits. Past Medical History GI: GERD Musculoskeletal: Osteoarthritis Renal/: Benign prostatic enlarg. Past Surgical History Past Surgical History: Hernia Repair, Total knee replacement Social History Smoke: No ALCOHOL: occassional Current Medications Current Medications Active Scripts Active Reported Durachol 3,775 Unit-1 mg Cap (Vitamin D3/Folic Acid) 1 Each Capsule 1 Each PO DAILY Trazodone Hcl 100 Mg Tablet 100 Mg PO PRN QHS PRN Finasteride 5 Mg Tablet 5 Mg PO DAILY Iron (Ferrous Gluconate) 236 Mg Tablet 65 Mg PO DAILY Nexium Capsule (Esomeprazole Magnesium) 40 Mg Capsule.dr 40 Mg PO DAILYAC Allergies Allergies: Coded Allergies: Penicillins (Verified Allergy, Intermediate, Unknown, 08/24/19) unknown Physical Exam General: Alert, Cooperative HEENT: Atraumatic Lungs: Normal air movement Abdomen: Soft Extremities: Other (The RIGHT knee shows normal alignment, no masses, but a moderate effusion. There is a palpable defect at the patellar tendon. He has a high riding patella. Slight warmth. Range of motion is 0-120 degrees, with typical total knee crepitus but no pain at the extremes of motion. The knee is stable to varus and valgus stress without subluxation or laxity. Muscle strength is normal (5/5) for quadriceps and hamstrings, and muscle tone is normal. The skin shows a well-healed midline scar from total knee arthroplasty and no other lesions or rashes. Light touch sensation is intact. No edema and no varicosities. Dorsalis pedis pulse is intact and capillary refill is normal. ) Skin: No breakdown, No significant lesion Neuro: Normal speech, Sensation intact VTE Prophylaxis Ordered VTE Prophylaxis Devices: Yes VTE Pharmacological Prophylaxi: Yes Assessment/Plan Assessment/Plan He has a ruptured patellar tendon on examination. This occurred about 6 weeks after his total knee arthroplasty. Frankly I have seen other soft tissue issues after robotic total knee arthroplasty which seem related to patients overdoing it. I think the knee is so well balanced and feels so good after robotic TKA that patients are inclined to do more than they should, and their tissues and biology have not had enough time for satisfactory healing. We did Synovasure testing a week ago to make sure there was no infection and those results were benign with only 112 white blood cells/uL in the synovial fluid, alpha defensin negative, only 41% neutrophils. I spoke to the patient about reconstruction of the patellar tendon using allograft, and I will augment this repair with #5 FiberWire, placing swivel lock anchors into the tibia to secure the allograft tendons as well as the ends of the #5 FiberWire suture. I have had good results with this procedure and usually have just used a knee immobilizer postoperatively, rather than 3 months of casting which is the suggested after caring the literature using other procedures. I spoke to the patient about the risks benefits and alternatives. There is really no good nonsurgical alternatives at this point. We discussed the potential risks of continued extensor lag and weakness, nerve or artery injury, rerupture, muscle weakness, infection, blood clots, or other potential surgical or anesthetic complications. All of his questions about surgery were answered and he desires to proceed. ESME BOSWELL MD August 24, 2019 13:01
[~2019-08-25] VITALS: Ht 177.8 cm; Wt 73.9 kg
[~2019-08-25 06:02] MED LIST changes: +ASPI325T11 PO; +CELE200C PO; +CELECOXIB 100 MG CAPSULE. PO PRN; -CELECOXIB 100 MG CAPSULE. PO SCH; -MORPHINE SULFATE 5 MG, KETOROLAC 30MG VIAL 30 MG, ROPIVacaine 0.5% PF 60 ML, EPINEPHrin... INT ART ONE; +OXYC1TAB15 PO; -TOBRAMYCIN POWDER 1.2 GM VIAL. ONE; -TRANEXAMIC ACID 1,000 MG in IV NS 50ML -- 2ND BAG INJ ONE; +TV=100ml MORPHINE 5 MG, KETOROLAC 30 MG, ROPIVacaine 0.5% PF 60 ML, EPINEPH... INT ART ONE; -VANCOMYCIN 1 GM VIAL. ONE; +VITA1CAP28 PO
[2019-08-25] MEDS ORDERED: CLINDAMYCIN 900MG PREMIX 50 ML IV ONE (06:17)
[2019-08-25] MEDS ORDERED: ROCURONIUM 50 MG/5 ML VIAL. ONE (06:41)
[2019-08-25] MEDS ORDERED: DEXAMETHASONE SOD PHOS 4 MG/ML VIAL ONE (06:41)
[2019-08-25] MEDS ORDERED: ONDANSETRON PF 4 MG/2 ML VIAL. ONE (06:41)
[2019-08-25] MEDS ORDERED: PROPOFOL 10 MG/ML (20ML) VIAL. IV ONE (06:41)
[2019-08-25] MEDS ORDERED: LIDOCAINE 2% PF 5 ML VIAL. ONE (06:41)
[2019-08-25] MEDS ORDERED: CELECOXIB 100 MG CAPSULE. ONE (06:59)
[2019-08-25] MEDS ORDERED: MORPHINE SULFATE 2 MG/ML VIAL. IV PRN (07:00)
[2019-08-25] MEDS ORDERED: fentaNYL PF VIAL 100 MCG/2 ML VIAL IV PRN ×3 (07:00→09:45)
[2019-08-25] MEDS ORDERED: IV RINGERS,LACTATED 1000ML 1,000 ML IV SCH ×2 (07:00→09:37)
[2019-08-25] MEDS ORDERED: ACETAMINOPHEN 325 MG TABLET. PO ONE (07:00)
[2019-08-25] MEDS ORDERED: ONDANSETRON PF 4 MG/2 ML VIAL. IV PRN ×2 (07:00→09:45)
[2019-08-25] MEDS ORDERED: PROCHLORPERAZINE 10 MG/2 ML VIAL. IV PRN ×2 (07:00→09:45)
[2019-08-25] MEDS ORDERED: LIDOCAINE 1% PF 2 ML VIAL. ID PRN (07:00)
[2019-08-25] MEDS ORDERED: HYDROmorphone 2 MG/ML VIAL IV PRN (07:00)
[2019-08-25] MEDS ORDERED: BUPIVACAINE-EPI 0.25%-1:200000 MPF 30 ML VIAL. ONE (07:03)
[2019-08-25] MEDS ORDERED: SUCCINYLCHOLINE 200 MG/10 ML VIAL. ONE (07:12)
--- NOTE | 2019-08-25 07:56 | RAD ---
EXAM: Right knee, 2 views. HISTORY: Preoperative evaluation. Patellar repair. COMPARISON: 06/29/2019 FINDINGS: 2 views of the right knee are obtained. There is a right knee arthroplasty. There is patella veronica. There are displaced bone fragments from the inferior patella. There is a large joint effusion. There is soft tissue edema. There are vascular calcifications. There are track barraza within the tibia and femur due to prior instrumentation. IMPRESSION: 1. Patella veronica and displaced fracture fragments along the inferior patella consistent with patellar tendon injury. 2. Right knee arthroplasty. 3. Large right knee effusion and soft tissue swelling. Electronically signed by: Mary Chen MD (08/25/2019 7:54 AM) [id number]
[2019-08-25] MEDS ORDERED: ePHEDrine PF IN SALINE 50 MG/10 ML SYRINGE. IV ONE (07:57)
[2019-08-25] MEDS ORDERED: TRANEXAMIC ACID 1,000 MG in IV NS 50ML -- 2ND BAG INJ ONE (08:00)
[2019-08-25] MEDS ORDERED: VANCOMYCIN 1 GM VIAL. ONE ×2 (08:02)
[2019-08-25] MEDS ORDERED: VANCOMYCIN 10GM VIAL for OR. ONE (08:04)
[2019-08-25] MEDS ORDERED: fentaNYL PF VIAL 100 MCG/2 ML VIAL ONE ×2 (08:19→09:32)
[2019-08-25] MEDS ORDERED: DESFLURANE 61 TO 120 MINUTES IH ONE (08:38)
[2019-08-25] MEDS ORDERED: hydrALAZINE 20 MG/ML VIAL. ONE (08:47)
[2019-08-25] MEDS ORDERED: NEOSTIGMINE METHYLSULFATE 5 MG/5 ML SYRINGE. ONE (09:01)
[2019-08-25] MEDS ORDERED: GLYCOPYRROLATE 1 MG/5 ML VIAL. ONE (09:01)
[2019-08-25] MEDS: fentaNYL PF VIAL 100 MCG/2 ML VIAL IV PRN ×3 (09:32→09:40)
[2019-08-25] MEDS ORDERED: MORPHINE SULFATE 2 MG/ML VIAL. ONE (09:36)
[2019-08-25] MEDS: MORPHINE SULFATE 2 MG/ML VIAL. IV PRN ×2 (09:37→09:50)
[2019-08-25] MEDS ORDERED: diazePAM 5 MG TABLET PO STA (09:47)
--- NOTE | 2019-08-25 09:59 | PDOC4 ---
Operative Note Operative Note Date of Procedure: August 25, 2019 Pre-Op Diagnosis: Spontaneous rupture of extensor tendons right lower leg M66.261 Post-Op Diagnosis: Spontaneous rupture of extensor tendons right lower leg M66.261 Procedure: Right knee suture of infrapatellar tendon secondary reconstruction including allograft semi-tendinosis tendon graft CPT 60720 Surgeon: Esme Velez MD Pillowcase Cutter: ANNETTE Krishnamurthy Anesthesia: General EBL: 50 mL Specimens Obtained: none Complications: none Drains: none Tourniquet: 68 minutes at 300 mmHg Findings: ruptured patellar tendon and retinaculum, with infrapatellar tendon avulsed from the inferior pole of the patella. No evidence of infection. Indications for Procedure: Mr. Ivey is a 74-year-old man who had right total knee arthroplasty 4 months ago. He had been doing well with his recovery initially for several months but then he felt a pop recently after which his knee has become unstable. Examination shows a ruptured patellar tendon with a high riding patella and loss of active extension. I did Synovasure testing and there is no evidence of infection, although the final results are still pending. I discussed options for treatment with him, and recommended patellar tendon repair, along with augmentation using allograft, and augmentation with FiberWire suture, FiberTape suture, and Arthrex anchors. We discussed the potential risks benefits and alternatives. There is a popular procedure involving Marlex mesh but the typical postoperative protocol for that surgery involves 3 months of po stoperative casting of the knee in extension. In my experience using the planned procedure there are good results with use of a knee immobilizer and early active range of motion. We discussed the risks of pain, bleeding, infection, blood clots, extensor lag, recurrent rupture, neurovascular injury, disease transmission from allograft, weakness, muscle spasms, and other potential surgical and anesthetic complications. All of his questions about surgery were answered and he desired to proceed. Written consent was obtained. Procedure in Detail: The patient was identified in the preoperative holding area. The correct right lower extremity was marked by me. The patient was taken to the operating room where general anesthetic was used. The patient was positioned supine on the operating table. A tourniquet was applied to the upper portion of the limb. Preoperative antibiotics were given intravenously. A timeout procedure was performed. The operating team wore the personal exhaust ventilated hoods. The limb was prepared in sterile fashion with ChloraPrep and sterile drapes were applied. An impervious stockinette and Coban were used over the lower limb. An Esmarch bandage was used to exsanguinate the limb and the tourniquet was inflated to 300 mmHg. The previous midline incision was reopened sharply with a 10 blade scalpel. Soft tissue dissection was performed with a 15 blade scalpel. There is a typical patellar tendon rupture with extension into the medial and lateral retinaculum, and a tiny fragment of bone avulsed from the inferior pole of the patella which is attached to the superior portion of the patellar tendon remnant. There was no evidence of infection. Copious saline irrigation was used. The patellar component appears well fixed and the patella otherwise appears normal. The femoral and tibial components appear well fixed without complications. First I did a primary repair of the patellar tendon before doing the secondary augmentation and reconstruction. I used a #5 FiberWire suture whipstitched in a Krakw pattern in the superior portion of the patellar tendon, and placed a transverse drill hole across the remaining bone of the nonarticular surface of the patella, away from the polyethylene implant. This is slightly more anterior than the preferred position near the articular surface when no patella polyethylene implant is present, but was as posterior as possible without drilling into the cement and patellar implant. This was again whipstitched and Krakw pattern using a free needle and the remaining #5 FiberWire. Lucas my virtual office assistant now held the patella reduced to the patellar tendon, and the sutures were tied. For reconstruction and augmentation I used a semitendinosis allograft. This was whipstitched at the 2 free ends using FiberLoop suture. A hemostat was placed through the distal quadriceps tendon, and the graft was passed transversely through the distal quadriceps tendon, and then the 2 tails were brought distally to the tibial tubercle. I then placed a guidewire for the Arthrex SwiveLock BioComposite 7 x 19.5 mm tenodesis anchor, and used a 7 mm reamer to create a bone socket in the medial tibial tubercle. A forked anchor promos executive producer was used, and one end of the tendon was docked into the first tunnel with the anchor folding the tendon at the fork for secure fixation of the tendon graft. A second tunnel was placed for the other end of the graft in the lateral tibial tubercle, and a similar 7 x 19.5 mm SwiveLock tenodesis BioComposite anchor was placed, again doubling or folding the tendon 20 mm from its endpoint with the fork so that the amount of tendon graft in the tunnel is 40 mm. Next I used #2 FiberTape sutures in a Krakw pattern in the distal quadriceps tendon. I placed 1 medial suture with 2 tails coming distally and one lateral suture with 2 tails coming distally. The 2 medial #5 FiberWire suture tails were docked in the tibial tubercle using a 4.75 mm x 22 mm BioComposite SwiveLock suture anchor. The 2 lateral #5 FiberWire suture tails were docked in the tibial tubercle using a 4.75 mm x 22 mm BioComposite SwiveLock suture anchor. This created a secure extensor mechanism reconstruction including the soft tissue reconstruction. This allows 3 structures to be holding the patella tendon in place: The [place] tissue of the patellar bone and patellar tendon are repaired, although those tissues are not trustworthy since they apparently gave way under usual activities. The allograft secures the quadriceps tendon to the tibial tubercle using separate fibers, and in this augmentation should incorporate and strengthen over time, however that may take 1 to 2 years to fully incorporate. Finally the mechanical repair of the fiber tape from the distal quadriceps docked into the tibia allows a mechanical synthetic reconstruction which is strong enough to tolerate weightbearing immediately and prevent prolonged immobilization. Copious saline irrigation was used. Betadine lavage was used followed by additional saline irrigation. Bovie electrocautery was used for hemostasis. The skin edges were injected with 30 mLs of 0.25% bupivacaine with epinephrine. My virtual office assistant then closed the subcutaneous tissues with #2-0 Vicryl. Claude were placed in the skin by my virtual office assistant. A FRANKLIN dressing was applied. The tourniquet was released. Needle and sponge counts were correct. There were no apparent complications. A knee immobilizer will be used. The patient may weight- bear with the knee in full extension. ESME VELEZ MD August 25, 2019 09:58
[2019-08-25] MEDS ORDERED: diazePAM 5 MG TABLET PO PRN (10:00)
[2019-08-25] MEDS ORDERED: MORPHINE SULFATE 4 MG/ML VIAL. IVP PRN (10:00)
[2019-08-25] MEDS ORDERED: ONDANSETRON PF 4 MG/2 ML VIAL. IVP PRN (10:00)
[2019-08-25] MEDS ORDERED: POLYETHYLENE GLYCOL 3350 17 GM PACKET. PO PRN (10:00)
[2019-08-25] MEDS ORDERED: fentaNYL PF VIAL 100 MCG/2 ML VIAL IVP PRN (10:00)
[2019-08-25] MEDS ORDERED: MORPHINE SULFATE 2 MG/ML VIAL. IVP PRN (10:00)
[2019-08-25] MEDS ORDERED: DEXTROSE 50% 25 GM / 50ML DISP.SYRIN. IV PRN (10:00)
[2019-08-25] MEDS: HYDROmorphone 2 MG/ML VIAL IV PRN ×4 (10:01→10:33)
[2019-08-25 11:00] VITALS: BP 143/33
--- NOTE | 2019-08-25 11:40 | RAD ---
EXAM: Right knee, 2 views. HISTORY: Arthroplasty. COMPARISON: None. FINDINGS: 2 views of the right knee are obtained. There is a right knee arthroplasty in expected position. There is soft tissue gas, joint fluid and skin lani due to recent surgery. IMPRESSION: Right knee arthroplasty in expected position. Electronically signed by: Mary Chen MD (08/25/2019 11:38 AM) [id number]
[2019-08-25] MEDS: IV 1/2 NORMAL SALINE 1,000 ML IV SCH ×2 (12:00→23:19)
[2019-08-25] MEDS: oxyCODONE/APAP 10/325 1 TAB TABLET PO PRN ×3 (12:49→23:22)
[2019-08-25] MEDS: CLINDAMYCIN 900MG PREMIX 50 ML IV SCH ×2 (12:51→17:55)
--- NOTE | 2019-08-25 13:00 | NUR ---
Patient arrived around 1115 from PACU. Dressing to right knee dry/intact with immobilizer in place. IV infusing without complications. SCD on LLE. Patient on oxygen at 2L. ALOx4 with no complaints of nausea upon admission. Refusing pain medication, rating it between 2-4. Patient belongings at bedside. Will continue to monitor.
[2019-08-25 15:00] VITALS: BP 124/84
[2019-08-25] MEDS ORDERED: oxyCODONE/APAP 10/325 1 TAB TABLET PO PRN (15:00)
[2019-08-25 19:00] VITALS: BP 135/89
--- NOTE | 2019-08-25 19:25 | NUR ---
Patient unable to void post op. Bladder scan/cath protocol followed. Bladder scan showed 831ml. Sterile straight cath done with 1000ml in dark yellow output. Patient complained of no bladder pain or discomfort pre/post cath. scene shifter RN notified to follow up.
[2019-08-25 23:00] VITALS: BP 158/96
--- NOTE | 2019-08-25 23:49 | NUR ---
Patient c/o not being able to void after several attempts. Bladder scan showed >999ml. Patient straight cathed without difficulty. Received 1050ml light yellow urine. Will continue to monitor
[2019-08-26] MEDS: CLINDAMYCIN 900MG PREMIX 50 ML IV SCH (01:00)
[2019-08-26 03:00] VITALS: BP 158/96
--- NOTE | 2019-08-26 03:30 | NUR ---
Patient c/o not being able to void. Bladder scan done. Result was >999ml. Patient was straight cathed for urinary retention. Received 1100cc yellow urine. Patient tolerated procedure well. Will continue to monitor.
[2019-08-26 04:50] LABS: HEMATOCRIT 41.5 % (39.0-53.0); HEMOGLOBIN 13.7 g/dL (13.0-17.5)
[2019-08-26] MEDS ORDERED: MAGNESIUM HYDROXIDE 2,400 MG/30 ML ORAL.SUSP. PO PRN (06:00)
[2019-08-26 07:00] VITALS: BP 129/75
[2019-08-26] MEDS ORDERED: ASPIRIN 325 MG TABLET PO SCH (08:00)
--- NOTE | 2019-08-26 08:00 | NUR ---
Bladder scanned pt > 999. Straight cath pt 1000ml out.
[2019-08-26] MEDS ORDERED: PANTOPRAZOLE 40 MG TABLET.DR. PO SCH (08:15)
[2019-08-26] MEDS ORDERED: traZODone 100 MG TABLET. PO PRN (08:15)
[2019-08-26] MEDS ORDERED: FERROUS SULFATE 325 MG TABLET. PO SCH (08:30)
[2019-08-26] MEDS: oxyCODONE/APAP 10/325 1 TAB TABLET PO PRN (08:51)
[2019-08-26] MEDS ORDERED: CHOLECALCIFEROL (VITAMIN D3) 1,000 UNIT TABLET PO SCH ×2 (09:00)
[2019-08-26] MEDS ORDERED: SENNOSIDES/DOCUSATE 8.6/50MG TABLET. PO SCH (09:00)
[2019-08-26] MEDS ORDERED: FOLIC ACID 1 MG TABLET. PO SCH (09:00)
[2019-08-26] MEDS ORDERED: FINASTERIDE 5 MG TABLET. PO SCH (09:00)
[2019-08-26] MEDS ORDERED: MULTIVITAMIN with MINERAL TABLET. PO SCH (09:00)
--- NOTE | 2019-08-26 10:47 | NUR ---
SW following. Discussed with RN, pt has had [facility] in the past. PT/OT recommending home health. Lupillo Rasmussen RN met with pt, pt agreeable to [facility]. Clinicals faxed, awaiting discharge orders. JOSE will continue to follow. RN notified. Addendum: 08/26/19 at 1628 by LEWIS GARCIA Pt discharging home today with [facility]. JOSE faxed discharge orders.
[2019-08-26 11:00] VITALS: BP 127/69
[2019-08-26] MEDS: IV 1/2 NORMAL SALINE 1,000 ML IV SCH (12:39)
[2019-08-26 15:00] VITALS: BP 149/71
[2019-08-26] MEDS ORDERED: ASPI325T8 PO (15:38)
[2019-08-26] MEDS ORDERED: OXYC1TAB22 PO (15:38)
[2019-08-26] MEDS ORDERED: BISACODYL 10 MG SUPP.RECT. PR PRN (16:00)
--- NOTE | 2019-08-26 17:17 | NUR ---
Pt discharged home with self care. Discharge instructions discussed. Pt verbalized understanding. Dr. Velez called in prescriptions for oxycodone. IV removed. Assisted pt to wheelchair. He was taken to Outpt entrance and secured in vehicle with son.
== END 2019-08-26 17:20 | disposition home health service (06) ==
LOC: SURG 06:02 → 4 NORTH 10:27
PROVIDERS: ADMIT Orthopaedic Surgery; ATTEND Orthopaedic Surgery
DX: Z03.818 Encounter for observation for suspected exposure to other biological agents ruled out (principal); M66.261 Spontaneous rupture of extensor tendons, right lower leg; M19.90 Unspecified osteoarthritis, unspecified site; N40.0 Benign prostatic hyperplasia without lower urinary tract symptoms; K21.9 Gastro-esophageal reflux disease without esophagitis; Z79.899 Other long term (current) drug therapy; Z98.890 Other specified postprocedural states; Z96.651 Presence of right artificial knee joint
CPT/HCPCS: 27381; 36415; 73560; 80048; 82040; 82306; 85014; 85018; 85025; 85610; 85651; 85730; 86850; 86900; 86901; 87635; 96365; 96366; 96375; 96376; 97161; 97166; 97530; 97535; A7015; C1713; G0378; G0379; J0171; J0330; J0360; J0780; J1100; J1170; J1885; J2270; J2405; J2704; J2710; J2795; J3010; J3490; J3370; C1776

== ENCOUNTER → 2021-07-19 | Day surgery (SDC) | payer BC ==
[~2021-07-19] VITALS: Ht 180.3 cm; Wt 74.5 kg
[~2021-07-19] MED LIST changes: -ACETAMINOPHEN 500 MG TABLET PO PRN; +AMLO-187 PO; +ASPI325T8 PO; -CELECOXIB 100 MG CAPSULE. PO PRN; -CLINDAMYCIN 900MG PREMIX 50 ML IV PRN; +OXYC1TAB22 PO; +PROPOFOL 10 MG/ML (20ML) VIAL. IV ONE; -TRANEXAMIC ACID 1,000 MG in IV NS 50ML -- 1ST BAG INJ ONE; -TV=100ml MORPHINE 5 MG, KETOROLAC 30 MG, ROPIVacaine 0.5% PF 60 ML, EPINEPH... INT ART ONE
[2021-07-19 08:03] VITALS: BP 139/70
[2021-07-19 09:54] VITALS: BP 143/78
--- NOTE | 2021-07-20 16:08 | PATHOLOGY ---
[facility] Accession Number: [id number] . 01 Material submitted: . PART A: gastrointestinal site - GASTRIC ULCER BIOPSY PART B: esophagus - DISTAL ESOPHAGUS BIOPSY HX KENNY'S. Modifiers: distal . 01 Clinical history: . ABDOMINAL PAIN EGD . 02 Diagnosis: A. Gastric biopsies, gastric ulcer: - Reactive gastropathy with ulceration. See comment. . B. Esophageal biopsies, distal esophagus: - Reflux changes. See comment. LBQ 07/20/2021 1517 Local . 02 Comment: Sections of the gastric ulcer biopsy reveal segments of gastric antral mucosa, acute inflammatory exudate, and granulation tissue showing acute and chronic inflammation. The segments of gastric antral mucosa show congestion, foveolar hyperplasia, and focal mild chronic inflammation. A properly controlled immunoperoxidase stain for Helicobacter is negative for Helicobacter organisms. The findings are consistent with a reactive gastropathy with ulceration. . Sections of the distal esophageal biopsy reveal multiple segments of hyperplastic squamous esophageal mucosa showing focal intraepithelial inflammatory cells including a few eosinophils. The findings are consistent with reflux changes. There is no evidence of Kenny's change, dysplasia, or malignancy. (JPM/db; 07/20/2021) . Special stain performed: Immunoperoxidase stain for Helicobacter on A1 . 02 Electronically signed: . Adonay Mckeon MD, Pathologist NPI- [id number] . 01 Gross description: . A. The specimen is received in formalin, labeled "Randy Ivey, gastric ulcer BX". Received are multiple segments of pale veliz tissue measuring 1.5 x 0.5 x 0.1 cm in aggregate dimensions. The specimen is filtered and entirely submitted in cassette A1. . B. The specimen is received in formalin, labeled "Randy Ivey, distal esophagus BX, Hx Kenny's". Received are multiple segments of white-veliz tissue measuring 1.0 x 0.5 x 0.1 cm in aggregate dimensions. The specimen is filtered and entirely submitted in cassette B1. ([facility]; 07/19/2021) NRI/NRI 07/19/2021 1928 Local . 02 Pathologist provided ICD-10: K31.9, K29.00, K21.00 . 02 CPT . 411176, 240610, D09319 Specimen Comment: A courtesy copy of this report has been sent to [phone] Specimen Comment: Report sent to , DR LEWIS / DR SHAH Performed at: 01 [facility] [address], [place] [id number] MD Matt Eddy MD Phone: [phone] Performed at: 02 [facility] [address] [place], [place] [id number] MD Adonay Mckeon MD Phone: [phone]
== END | disposition home or self-care (01) ==
LOC: SURG 07:39
PROVIDERS: ATTEND Internal Medicine Gastroenterology
DX: K22.70 Barrett's esophagus without dysplasia (principal); K21.00 Gastro-esophageal reflux disease with esophagitis, without bleeding; K44.9 Diaphragmatic hernia without obstruction or gangrene; K25.9 Gastric ulcer, unspecified as acute or chronic, without hemorrhage or perforation; K31.89 Other diseases of stomach and duodenum; M19.90 Unspecified osteoarthritis, unspecified site; Z79.899 Other long term (current) drug therapy; Z98.890 Other specified postprocedural states; Z88.0 Allergy status to penicillin; Z72.89 Other problems related to lifestyle
CPT/HCPCS: 43239; J2704; 88305; 88342